=== PATIENT | female | born 1955 | race Caucasian/White ===

== ENCOUNTER 2022-05-09 16:09 | Outpatient (CLI) | payer MEDICARE, SELFPAY ==
--- NOTE | 2022-05-09 17:00 | CRLHL7_ITS ---
For Patients: As a result of the Century Cures Act, medical imaging exams and procedure reports are released immediately into your electronic medical record. You may view this report before your referring provider. If you have questions, please contact your health care provider. INDICATION: Right upper quadrant and flank pain TECHNIQUE: Ultrasound abdomen limited. Sonographic images of the right upper quadrant were obtained using rahman-scale and color Doppler images. COMPARISON: None FINDINGS: Liver: Normal in size diffuse fatty infiltration. No masses. No intrahepatic biliary dilatation. Gallbladder: No stones or sludge. Normal wall thickness. No pericholecystic fluid. Common bile duct: 5 mm. Pancreas: Visualized portions are unremarkable. Right kidney: 9.6 cm. Normal echotexture and cortex. No masses, stones, or hydronephrosis. Vasculature: Proximal abdominal aorta and IVC are normal. IMPRESSION: Infiltration of the liver. Normal gallbladder and common bile duct. Normal right kidney. Dictated by Abilio Mejia MD @ 05/09/2022 6:01:42 PM Dictated by: Abilio Mejia MD @ 05/09/2022 18:01:47 (Electronically Signed)
== END 2022-05-09 16:10 | disposition home or self-care (01) ==
LOC: US 16:12
PROVIDERS: Visit Provider Emergency Medicine
DX: R10.9 Unspecified abdominal pain (principal); N20.0 Calculus of kidney; K57.90 Diverticulosis of intestine, part unspecified, without perforation or abscess without bleeding; R91.8 Other nonspecific abnormal finding of lung field
CPT/HCPCS: 76705; 87086

== ENCOUNTER 2022-05-09 17:21 | Emergency (ER) | payer MEDICARE, SELFPAY ==
--- NOTE | 2022-05-09 17:23 | CRLHL7_ITS ---
For Patients: As a result of the 21st Century Cures Act, medical imaging exams and procedure reports are released immediately into your electronic medical record. You may view this report before your referring provider. If you have questions, please contact your health care provider. INDICATION: Flank pain. TECHNIQUE: CT abdomen and pelvis without contrast. COMPARISON: None. FINDINGS: Lower chest: 6 mm right lower lobe nodule (series 2, image 19). 6 mm left lower lobe nodule (series 2, image 21). 5 mm left lower lobe subpleural nodule (series 2, image 33). Liver: Normal in size and attenuation. Gallbladder and bile ducts: No stones or inflammation. No biliary ductal dilatation. Spleen: Normal in size. Adrenal glands: Normal in size. No nodules. Pancreas: Curvilinear calcification along the posterior aspect of the pancreatic body. Kidneys: Multiple bilateral nonobstructive renal calculi. No urolithiasis. No hydronephrosis. GI tract: Diverticulosis without evidence of diverticulitis. Normal in caliber. Appendix is not well visualized, however there is no evidence of right lower quadrant inflammatory stranding. Lymph nodes: No lymphadenopathy. Vasculature: Scattered atherosclerotic calcifications. Abdominal wall/Omentum/Peritoneum: Unremarkable. No free air or significant free fluid. Pelvis: Unremarkable. Bones: Degenerative changes of the spine. IMPRESSION: 1. Bilateral nonobstructive nephrolithiasis. 2. Diverticulosis without evidence of diverticulitis. 3. Curvilinear calcification along the posterior aspect of the pancreatic body, nonspecific. 4. Few scattered pulmonary nodules measuring up to 6 mm. Please see below for follow-up guidelines. SOCIETY GUIDELINES - SOLID NODULES: SINGLE LOW RISK - nodule less than 6 mm: No routine follow-up. - nodule 6-8 mm: CT at 6-12 months, then consider CT at 18-24 months. - nodule greater than 8 mm: Consider CT at 3 months, PET/CT or tissue sampling. SINGLE HIGH RISK - nodule less than 6 mm: Optional CT at 12 months. - nodule 6-8 mm: CT at 6-12 months, then CT at 18-24 months. - nodule greater than 8 mm: Consider CT at 3 months, PET/CT or tissue sampling. MULTIPLE LOW RISK - nodule less than 6 mm: No routine follow-up. - nodule 6-8 mm: CT at 3-6 months, then consider CT at 18-24 months. - nodule greater than 8 mm: CT at 3-6 months, then consider CT at 18-24 months. MULTIPLE HIGH RISK - nodule less than 6 mm: Optional CT at 12 months. - nodule 6-8 mm: CT at 3-6 months, then at 18-24 months. - nodule greater than 8 mm: CT at 3-6 months, then at 18-24 months. Please note that all CT scans at this facility use dose modulation, iterative reconstruction, and/or weight-based dosing when appropriate to reduce radiation dose to as low as reasonably achievable. Dictated by Marv Urrutia MD @ 05/09/2022 6:59:58 PM (Electronically Signed)
[2022-05-09 17:31] VITALS: BP 162/108; PULSE 74; RESP 18; TEMP 36.8; O2SAT 97; BMI 31.8
[2022-05-09] MEDS: KETOROLAC 15 MG/ML inj IVP (18:04)
[2022-05-09] MEDS: 0.9 % SODIUM CHLORIDE 1000 ml 1,000 ML IV (18:15)
[2022-05-09] MEDS: fentaNYL 100 MCG/2 ML inj 50 MCG IVP (18:16)
--- NOTE | 2022-05-09 19:19 | ED.GENADULT ---
HPI - General Adult General Chief complaint: Abdominal Pain Stated complaint: Upper abdomen pain Time Seen by Provider: 05/09/22 17:23 History of Present Illness HPI narrative: Patient is a 66-year-old female who has had right flank pain for the past two days. She was seen in clinic today by Dr. Ortiz. Her evaluation included a CBC, BMP, LFTs, lipase all of which were normal. Her urine has a few red blood cells, few white blood cells, a few bacteria. Cultures pending. She was sent to the hospital for a right upper quadrant ultrasound which was unremarkable. At that point Dr. Ortiz contacted me as the patient was enough pain that she needed pain medication as well as further workup. Throughout the day today the pain has migrated from her right lower back around into her right lower quadrant and groin. She has a history of kidney stones and has required lithotripsy and ureteral stent placement. These procedures were many years ago and she has not had difficulty with kidney stones since that time. She denies dysuria, urgency, frequency. She has not passed any clots in her urine. No nausea, vomiting, diarrhea. No fevers or chills. She does have a history of hyperparathyroidism and hypercalcemia. When she had that problem she did have abdominal pain that resolved when her calcium level was treated. This feels distinctly different to her. Related Data Previous Rx's Medication Instructions Recorded oxycodone-acetaminophen 5 mg-325 1 tab PO Q6H PRN pain #15 tabs 05/09/22 mg tablet (Percocet) Allergies Allergy/AdvReac Type Severity Reaction Status Date / Time nikel AdvReac Uncoded 05/09/22 13:40 Review of Systems Narrative: Review of systems is outlined above otherwise noted to be negative. [facility] Medical History (Updated 05/09/22 @ 19:17 by Abilio Gama MD) Abdominal pain Bronchospasm Depression Elevated liver transaminase level Grief Hyperlipidemia Hyperparathyroidism Nephrolithiasis Social History (Updated 05/09/22 @ 13:51 by Tarsha Ortiz MD) Narrative: Loss of son to COVID Smoking Status: Never smoker Exam Narrative: Exam Narrative: Vitals noted. HEENT: Conjunctiva clear. Tympanic membranes are pearly white bilaterally. Posterior pharynx is clear without erythema or exudate. Neck is supple without adenopathy, thyromegaly, carotid bruit. Lungs: Clear to auscultation in all flores. No wheezes, rales, rhonchi. Heart: Regular rate and rhythm without murmur. Abdomen: She has some tenderness in the right lower back and right lower quadrant. No guarding, rigidity, rebound. No palpable masses. No skin changes. Extremities: No cyanosis or edema. Good distal pulses. Skin: No abnormalities noted of the exposed skin. Neurologic: Awake, alert, fully oriented. Neurologic exam is nonfocal. Const: Vital Signs, click to edit/add: Vital Signs - 24 hr 05/09/22 17:31 05/09/22 19:24 Temperature 98.3 F Pulse Rate [Right Pulse Oximeter] 74 81 Respiratory Rate 18 18 Blood Pressure [Le ft Upper Arm] 162/108 H 148/98 H Pulse Oximetry 97 97 Oxygen Delivery Me thod Room Air Room Air Course Course Hospital Course: Patient was seen and examined. CT of her abdomen of was ordered. An IV was established she is given 1 L of normal saline, Zofran 4 mg IV, Toradol 15 mg IV, fentanyl 50 mcg IV. Reevaluation(s) Reevaluation #1: Her pain is significantly improved with the medications. Her CT scan shows multiple tiny stones in each kidney. No hydronephrosis or hydroureter. No evidence of pyelonephritis. Vital Signs Vital signs: Initial Vital Signs Temperature 98.3 F 05/09/22 17:31 Temperature Source Temporal Artery Scan 05/09/22 17:31 Pulse Rate 74 05/09/22 17:31 Respiratory Rate 18 05/09/22 17:31 Blood Pressure 162/108 H 05/09/22 17:31 Blood Pressure Mean 126 05/09/22 17:31 Blood Pressure Position Sitting 05/09/22 17:31 Pulse Oximetry 97 05/09/22 17:31 Oxygen Delivery Method 05/09/22 17:31 Vital Signs Temperature 98.3 F 05/09/22 17:31 Pulse Rate 74 05/09/22 17:31 Respiratory Rate 18 05/09/22 17:31 Blood Pressure 162/108 H 05/09/22 17:31 Pulse Oximetry 97 05/09/22 17:31 Oxygen Delivery Method 05/09/22 17:31 Temperature 98.3 F 05/09/22 17:31 Pulse Rate 81 05/09/22 19:24 Respiratory Rate 18 05/09/22 19:24 Blood Pressure 148/98 H 05/09/22 19:24 Pulse Oximetry 97 05/09/22 19:24 Oxygen Delivery Method 05/09/22 19:24 Medical Decision Making MDM Narrative Medical decision making narrative: Her story is consistent with a kidney stone that recently passed. Her pain is improved. We discussed that usually would see signs of a dilated kidney or ureter if she had pain for two days from a stone but I have no other explanation for her symptoms. She is discharged with an oral pain medication and if her pain returns she will need to follow up in the clinic for further evaluation. Discharge Plan Discharge Clinical Impression: Nephrolithiasis Patient Disposition: Home, Self-Care Condition: Improved Additional Instructions: Push fluids. Use Ibuprofen 600 mg three times a day for pain. Use Percocet for refractory pain. Follow up in the clinic if pain returns. Prescriptions: New oxycodone-acetaminophen [Percocet] 5-325 mg tablet 1 tab PO Q6H PRN (Reason: pain) Qty: 15 0RF Follow Up/Referrals: Generic,Amb Provider [Primary Care Provider] - Tarsha Ortiz MD [Staff Physician] - Stand Alone Forms: [employer] Info Instructions
[2022-05-09 19:24] VITALS: BP 148/98; PULSE 81; RESP 18; O2SAT 97
== END 2022-05-09 19:25 | disposition home or self-care (01) ==
PROVIDERS: Emergency Provider Family Medicine
DX: N20.0 Calculus of kidney (principal)
CPT/HCPCS: 36415; 71260; 74176; 80053; 80076; 83690; 84484; 85025; 85379; 93005; 96374; 96375; 99282; 99283; 99284; J1885; J3010; J7030; Q9967

== ENCOUNTER 2022-05-11 09:33 | Emergency (ER) | payer MEDICARE, SELFPAY ==
[2022-05-11 10:00] VITALS: BP 152/94; PULSE 71; RESP 22; TEMP 36.3; O2SAT 94; BMI 31.8
--- NOTE | 2022-05-11 10:16 | CT_ITS ---
Patient: PAO TERRY Facility:?[facility] Patient ID:?[id number] Site Patient ID:?[id number]. Site :?[id number] Study:?CT-Chest W/ 95CC ISOVUE-370 PE PROTOCOL-05/11/2022 11:25:28 AM Ordering Physician:Vera Henderson Final Report: INDICATION: Chest pain TECHNIQUE: CT chest PE was acquired with 95 cc Isovue 370 intravenous contrast. COMPARISON: None. FINDINGS: Heart and vasculature: Contrast opacification of the pulmonary arterial tree is adequate. No sign of pulmonary embolism. Thoracic aorta is normal in caliber with mild atherosclerotic calcification. Moderate coronary atherosclerosis. No pericardial effusion. Lungs and pleural: No pleural effusion or pneumothorax. Discoid atelectasis along the minor fissure. Subpleural pulmonary nodule right middle lobe measuring 3 millimeters. Subpleural pulmonary nodule left lower lobe measuring 3 millimeters. Scattered discoid atelectasis left lung base. Lymph nodes/mediastinum: No mediastinal, hilar, or axillary adenopathy. Chest wall: No masses. Upper abdomen: Likely cyst partially included within the right kidney. Nephrolithiasis at the upper pole of the left kidney. Bones: Unremarkable for age. IMPRESSION: 1. No evidence of pulmonary embolus. 2. Indeterminate pulmonary nodules, largest measuring 3 millimeters. Management as per John society criteria below. SOCIETY GUIDELINES - SOLID NODULES: MULTIPLE LOW RISK - nodule less than 6 mm: No routine follow-up. MULTIPLE HIGH RISK - nodule less than 6 mm: Optional CT at 12 months. Please note that all CT scans at this facility use dose modulation, iterative reconstruction, and/or weight-based dosing when appropriate to reduce radiation dose to as low as reasonably achievable. Dictated by Hernando Reyna MD @ 05/11/2022 12:15:22 PM Signed by:?Hernando Reyna MD @05/11/2022 12:15:22 PM (Electronic Signature)
[2022-05-11 10:30] LABS: Basophils Absolute Auto 0.04 K/uL (0.00-0.30); Basophils Percent Auto 0.5 % (0.0-3.0); Hematocrit 40.2 % (33.0-51.0); Hemoglobin* 13.3 gm/dL (12.0-16.0); Lymphocytes Absolute Auto 2.11 K/uL (0.90-2.90); Lymphocytes Percent Auto 27.9 % (20-44); Mean Corpuscular HGB Conc 33 gm/dL (32-36); Mean Corpuscular Hemoglobin 32 pg (26-34); Mean Corpuscular Volume 97 fL (80-100); Monocytes Percent Auto 10.6 % (0.0-11.0); Platelet Count* 295 K/uL (140-440); RDW Coefficient of Variation % 12.5 % (11.5-15.5); Red Blood Count 4.16 m/uL (4.00-5.20); White Blood Count* 7.55 K/uL (4.50-11.00)
[2022-05-11 10:39] VITALS: PULSE 72; O2SAT 93
[2022-05-11 10:40] LABS: Slide Review Reflex No
[2022-05-11 10:43] LABS: Albumin* 4.3 g/dL (3.3-5.0); Chloride* 103 mmol/L (96-114); Potassium* 4.2 mmol/L (3.6-5.1); Sodium* 137 mmol/L (135-149)
[2022-05-11 10:45] VITALS: PULSE 70; O2SAT 95
[2022-05-11 10:45] LABS: Creatinine* 0.5 mg/dL (0.5-1.5); Est. Creatinine Clearance* 47.14; Estimated Glomerular Filt Rate 103 ml/min
[2022-05-11 10:46] LABS: Alanine Aminotransferase* 36 U/L (4-35); Alkaline Phosphatase* 51 U/L (40-150); Aspartate Amino Transferase* 37 U/L (12-35); Bilirubin Total* 0.7 mg/dL (0.1-1.5); Blood Urea Nitrogen* 14 mg/dL (7-30); Carbon Dioxide* 32 mmol/L (20-32); Glucose* 128 mg/dL (60-115)
[2022-05-11 10:47] LABS: Calcium* 9.4 mg/dL (8.4-10.6)
[2022-05-11 10:49] LABS: D Dimer Quantitative* < 0.27 ug/ml (0.00-0.50)
[2022-05-11 11:00] VITALS: PULSE 71; O2SAT 96
[2022-05-11 11:01] VITALS: BP 135/73; PULSE 70; O2SAT 94
[2022-05-11 11:02] VITALS: PULSE 73; O2SAT 96
[2022-05-11 11:02] LABS: Troponin I* < 0.01 ng/mL (0.01-0.04)
--- NOTE | 2022-05-11 12:28 | ED_ITS ---
HPI - Chest Pain General Chief Complaint: Chest Pain Stated Complaint: chest and back pain Time Seen by Provider: 05/11/22 09:57 History of Present Illness HPI narrative: Pt is a 66 year old woman who was evaluated 2 days ago for right upper quadrant pain. Pt had an unremarkable lab evaluation as well as CT of the abd and us of the ruq. Pt was treated with percocet and sent home. Pt comes in today stating that her pain is now more severe in the left side of her chest. No radiation or cough. Pain is sharp and worsens with movement. Pt has had no shortness of breath, nausea, vomiting, fever or chills. Pt's abd pain has resolved. Pt has been having the chest pain for the past 8 hours worsening with movement. Pt has an unremarkable EKG upon arrival upon my review. Related Data Previous Rx's Medication Instructions Recorded oxycodone-acetaminophen 5 mg-325 1 tab PO Q6H PRN pain #15 tabs 05/09/22 mg tablet (Percocet) Allergies Allergy/AdvReac Type Severity Reaction Status Date / Time nikel AdvReac Uncoded 05/09/22 13:40 Review of Systems Status of ROS Reports: 10 or more systems reviewed and unremarkable except as noted in History and below [facility] Medical History Abdominal pain Bronchospasm Depression Elevated liver transaminase level Grief Hyperlipidemia Hyperparathyroidism Nephrolithiasis Social History Narrative: Loss of son to COVID Smoking Status: Never smoker Do you use any of these nicotine containing products: None Second hand tobacco smoke exposure: No How often do you have a drink containing alcohol: 2-4 times a month How many standard drinks containing alcohol do you have on a typical day: 5 or 6 How often do you have six or more drinks on one occasion: Monthly AUDIT-C Alcohol total score: 6 Non-prescribed substance use: denies use service: No Exam Narrative Exam Narrative: EXAM GENERAL: Patient appears comfortable and well. EYES: No scleral icterus. THYROID: no thyroid nodules or thyromegaly. LYMPH: No supraclavicular or cervical lymphadenopathy. SKIN: Visible skin seen during exam normal or with benign process only. EXT: No dependent lower extremity pedal edema. HEART: Regular rate and rhythm with no murmurs, rubs, or gallops. LUNGS: Clear to auscultation bilaterally with no crackles or wheezes. ABD: Soft, non tender, non distended. PSYCH: Good eye contact, speech is not pressured. Const Vital Signs, click to edit/add: Vital Signs - 24 hr 05/11/22 10:00 05/11/22 10:39 05/11/22 10:45 Temperature 97.3 F L Pulse Rate 72 70 Pulse Rate [Pulse Oximeter] 71 Respiratory Rate 22 Blood Pressure Blood Pressure [Left Upper Arm] 152/94 H Pulse Oximetry 94 93 95 Oxygen Delivery Method Room Air 05/11/22 11:00 05/11/22 11:01 05/11/22 11:02 Temperature Pulse Rate 71 70 73 Pulse Rate [Pulse Oximeter] Respiratory Rate Blood Pressure 135/73 Blood Pressure [Left Upper Arm] Pulse Oximetry 96 94 96 Oxygen Delivery Method Course Course Hospital Course: Pt seen and examined. Repeat lab as well as CT of the chest ordered. Vital Signs Vital signs: Initial Vital Signs Temperature 97.3 F L 05/11/22 10:00 Temperature Source Temporal Artery Scan 05/11/22 10:00 Pulse Rate 71 05/11/22 10:00 Pulse Rhythm 05/11/22 10:00 Respiratory Rate 22 05/11/22 10:00 Blood Pressure 152/94 H 05/11/22 10:00 Blood Pressure Mean 113 05/11/22 10:00 Blood Pressure Position Supine 05/11/22 10:00 Pulse Oximetry 94 05/11/22 10:00 Oxygen Delivery Method 05/11/22 10:00 Vital Signs Temperature 97.3 F L 05/11/22 10:00 Pulse Rate 71 05/11/22 10:00 Respiratory Rate 22 05/11/22 10:00 Blood Pressure 152/94 H 05/11/22 10:00 Pulse Oximetry 94 05/11/22 10:00 Oxygen Delivery Method 05/11/22 10:00 Temperature 97.3 F L 05/11/22 10:00 Pulse Rate 73 05/11/22 11:02 Respiratory Rate 22 05/11/22 10:00 Blood Pressure 135/73 05/11/22 11:01 Pulse Oximetry 96 05/11/22 11:02 Oxygen Delivery Method 05/11/22 10:00 MDM - Chest Pain MDM Narrative Medical decision making narrative: Pt who had a full evaluation for RUQ Pain now comes in with left sided chest pain. Work up for the abd pain showed only unobstructing chronic appearing kidney stones. Work up for the chest pain shows a negative troponin, d dimer, cmp, cbc and EKG. No pathology seen on CT of the chest. Pt agrees that symptoms are likely musculskeletal and is comfortable with continued symptomatic care with PCP follow up. Differential Diagnosis Differential diagnosis: Likely fracture of rib, pneumothorax, stable angina, unstable angina pectoris, atypical chest pain, st elevation myocardial infarction, costochondritis, chest pain and biliary colic Medical Records Data Attestation: I reviewed the patient's medical records. Lab Data Labs: Lab Results 05/11/22 05/11/22 05/11/22 Range/Units 10:23 10:23 10:23 WBC 7.55 (4.50-11.00) K/uL RBC 4.16 (4.00-5.20) m/uL Hgb 13.3 (12.0-16.0) gm/dL Hct 40.2 (33.0-51.0) % MCV 97 (80-100) fL MCH 32 (26-34) pg MCHC 33 (32-36) gm/dL RDW Coeff of Isaac 12.5 (11.5-15.5) % Plt Count 295 (140-440) K/uL Neut % (Auto) 57.0 (42.0-72.0) % Lymph % (Auto) 27.9 (20-44) % [place]ston % (Auto) 10.6 (0.0-11.0) % Eos % (Auto) 4.0 (0.0-7.0) % Baso % (Auto) 0.5 (0.0-3.0) % Neut # (Auto) 4.30 (1.7-7.0) K/uL Lymph # (Auto) 2.11 (0.90-2.90) K/uL [place] # (Auto) 0.80 (0.00-0.90) K/UL Eos # (Auto) 0.30 (0.00-0.50) K/uL Baso # (Auto) 0.04 (0.00-0.30) K/uL D-Dimer Quant (PE/DVT) < 0.27 (0.00-0.50) ug/ml Sodium 137 (135-149) mmol/L Potassium 4.2 (3.6-5.1) mmol/L Chloride 103 (96-114) mmol/L Carbon Dioxide 32 (20-32) mmol/L BUN 14 (7-30) mg/dL Creatinine 0.5 (0.5-1.5) mg/dL Estimated Creat Clear 47.14 Estimated GFR 103 ml/min Glucose 128 H (60-115) mg/dL Calcium 9.4 (8.4-10.6) mg/dL Total Bilirubin 0.7 (0.1-1.5) mg/dL AST 37 H (12-35) U/L ALT 36 H (4-35) U/L Alkaline Phosphatase 51 (40-150) U/L Troponin I < 0.01 L (0.01-0.04) ng/mL Total Protein 8.0 (6.0-8.3) g/dL Albumin 4.3 (3.3-5.0) g/dL Discharge Plan Discharge Clinical Impression: Chest wall pain Patient Disposition: Home, Self-Care Condition: Stable Instructions: Chest Wall Pain (ED) Additional Instructions: Pain control as previous Tylenol Motrin Rest Follow up with PCP Activity Level: No Restrictions Discharge Diet: Regular Prescriptions: No Action oxycodone-acetaminophen [Percocet] 5-325 mg tablet 1 tab PO Q6H PRN (Reason: pain) Qty: 15 0RF Follow Up/Referrals: Tarsha Ortiz MD [Primary Care Provider] - Stand Alone Forms: [employer] Info Instructions
== END 2022-05-11 12:51 | disposition home or self-care (01) ==
PROVIDERS: Emergency Provider Internal Medicine; PCP Emergency Medicine
DX: R07.89 Other chest pain (principal)
CPT/HCPCS: 36415; 71260; 80053; 84484; 85025; 85379; 93005; 99283; 99284; Q9967

== ENCOUNTER 2024-11-18 07:24 | Outpatient (CLI) | payer MEDICARE, SELFPAY | END 2024-11-18 07:25 | disposition home or self-care (01) | LOC: NFLDREF 11-23 03:57 | PROVIDERS: PCP Emergency Medicine; Referring Provider Emergency Medicine; Visit Provider Family Medicine | DX: E78.5 Hyperlipidemia, unspecified (principal); I10 Essential (primary) hypertension | CPT/HCPCS: 80053; 80061 ==

== ENCOUNTER 2024-11-25 11:13 | Outpatient (CLI) | payer MEDICARE, SELFPAY | END 2024-11-25 11:14 | disposition home or self-care (01) | LOC: NFLDREF 12-01 01:54 | PROVIDERS: PCP Emergency Medicine; Referring Provider Emergency Medicine; Visit Provider Family Medicine | DX: Z00.00 Encounter for general adult medical examination without abnormal findings (principal); Z13.6 Encounter for screening for cardiovascular disorders | CPT/HCPCS: 80053; 80061 ==

== ENCOUNTER 2024-12-10 13:32 | Outpatient (CLI) | payer MEDICARE, SELFPAY ==
--- NOTE | 2024-12-10 14:00 | CRLHL7_ITS ---
For Patients: As a result of the Century Cures Act, medical imaging exams and procedure reports are released immediately into your electronic medical record. You may view this report before your referring provider. If you have questions, please contact your health care provider. INDICATION: abnormal levels of serum enzymes COMPARISON: 05/09/2022 ultrasound, 05/09/2022 CT TECHNIQUE: Real time rahman scale imaging and color Doppler analysis was performed of the right upper quadrant. FINDINGS: Liver echotexture is echogenic and coarsened. There is a normal appearance of the hepatic IVC and proximal abdominal aorta. There is no evidence of ascites. Echogenic focus associated with the gallbladder wall measures 5 x 3 x 4 millimeters. The common bile duct is of normal size and measures 1 mm in diameter at the level of the mihai hepatis. Pancreatic calcification again noted. Echogenic stones within the right kidney measure up to 8 millimeters. The right kidney measures 10.3 cm in length. IMPRESSION: Hepatic steatosis. 5 millimeter gallbladder polyp. Nonobstructing right renal stones. Dictated by Abilio Jesus MD @ 12/10/2024 6:20:26 PM (Electronically Signed)
--- NOTE | 2024-12-10 15:00 | CRLHL7_ITS ---
For Patients: As a result of the Cures Act, medical imaging exams and procedure reports are released immediately into your electronic medical record. You may view this report before your referring provider. If you have questions, please contact your health care provider. XR DXA Bone Mineral Density (BMD) Reason for exam: Asymptomatic menopausal state. Current height (inches): 64.0 Weight (lbs.): 190.0 Menopause age: 49 Ethnicity: White 1. Have you had a previous hip or vertebral fracture? No. 2. Have you had any fractures during your adult life which did not result from significant trauma (e.g., auto accident)? No. 3. Did either of your parents have a hip fracture? No. 4. Do you smoke? No. 5. Have you ever taken Glucocorticoids? No. 6. Do you have rheumatoid arthritis? No. 7. Do you have secondary osteoporosis? No. 8. Do you drink 3 or more alcoholic drinks per day? No. 9. Are you being treated for osteoporosis? No. 10. Have you ever taken any of the following medications: Actonel, Evista, Fosamax, Miacalcin, Reclast, Boniva, Forteo, HRT (i.e., estrogen/hormone therapy), Protelos, Prolia, Vitamin D, Calcium, other ??? please specify. ANSWER: Yes; vitamin D and HRT. 11. Do you have any of the following medical conditions: Anorexia or bulimia, asthma or emphysema, end stage renal disease, hyperparathyroidism, any seizure disorders, cancer, inflammatory bowel diseases, hysterectomy, other ??? please specify. ANSWER: No. 12. What was your maximum height (inches)? 64. 13. Do you perform weightbearing exercise regularly? No. 14. Do you regularly consume dairy products? Yes. 15. Do you drink caffeinated beverages? Yes. 16. At what age did your period start? 13. 17. Are you premenopausal? No. 18. How many full-term pregnancies have you had? 2. 19. Have you ever missed your period for more than 6 months in a row (not including or menopause)? No. TECHNIQUE: Bone mineral density study was performed using the [employer]. FINDINGS: The results of the study expressed as bone mineral density (BMD) are as follows: Lumbar Spine L1 to L4: BMD: 1.067 g/cm2. T-score: 0.2. Z-score: 2.3. Neck Left: BMD: 0.647 g/cm2. T-score: -1.8. Z-score: 0.0. Right: BMD: 0.575 g/cm2. T-score: -2.5. Z-score: -0.7. Total Left: BMD: 0.910 g/cm2. T-score: -0.3. Z-score: 1.2. Right: BMD: 0.874 g/cm2. T-score: -0.6. Z-score: 0.9. IMPRESSION: Osteoporosis. ABILIO RENE M.D. Diagnostic Radiologist [email or web address] Transcribed: 1:[address]/Dictated by: Abilio Rene MD @ 12/11/2024 10:08:00 AM (Electronically Signed)
--- NOTE | 2024-12-10 16:00 | CRLHL7_ITS ---
For Patients: As a result of the Century Cures Act, medical imaging exams and procedure reports are released immediately into your electronic medical record. You may view this report before your referring provider. If you have questions, please contact your health care provider. Indication: NICOTINE DEPENDENCE, F/U NODULE FROM CT CHEST PE Technique: Noncontrast CT chest Please note that all CT scans at this facility use dose modulation, iterative reconstruction, and/or weight-based dosing when appropriate to reduce radiation dose to as low as reasonably achievable. Comparison: 05/11/2022 Findings: Tiny stones are present within the visualized kidneys, unchanged. Atherosclerotic changes. No adenopathy. Visualized thyroid normal. Stable 5 millimeter nodule left lower lobe, . Stable 5.8 millimeter nodule right lower lobe, . 2 millimeter calcified nodule is unchanged within the periphery of the right lung, . Stable 2 millimeter subpleural nodule left lower lobe, . Unchanged perifissural nodule on the left, 05/29. No infiltrate or edema. No effusion or pneumothorax. No fracture. Impression: Stable bilateral pulmonary nodules measuring up to 5.8 millimeters. Optional 1 year follow-up chest CT could be considered. Stable bilateral nonobstructing nephrolithiasis. Please note that all CT scans at this facility use dose modulation, iterative reconstruction, and/or weight-based dosing when appropriate to reduce radiation dose to as low as reasonably achievable. Dictated by Abilio Jesus MD @ 12/11/2024 11:29:20 AM (Electronically Signed)
== END 2024-12-10 13:33 | disposition home or self-care (01) ==
LOC: US 13:33
PROVIDERS: PCP Family Medicine; Visit Provider Family Medicine
DX: R74.8 Abnormal levels of other serum enzymes (principal); F17.200 Nicotine dependence, unspecified, uncomplicated; R91.1 Solitary pulmonary nodule; N20.0 Calculus of kidney; Z78.0 Asymptomatic menopausal state; M81.0 Age-related osteoporosis without current pathological fracture
CPT/HCPCS: 71250; 76705; 77080